=== PATIENT | male | born 1940 | race Caucasian/White ===

== ENCOUNTER 2024-10-19 19:10 | Emergency (ER) | payer MEDICARE ==
[2024-10-19] MEDS: Acetaminophen/oxyCODONE 325-5 MG Tab PO STA (20:01)
[2024-10-19] MEDS: Ketorolac 30 MG/ML SDV IM ONE (20:04)
== END 2024-10-19 20:40 | disposition home or self-care (01) ==
LOC: FB.ED 19:10
DX: S63.502A Unspecified sprain of left wrist, initial encounter (principal); Z79.82 Long term (current) use of aspirin; Z79.899 Other long term (current) drug therapy; Z88.8 Allergy status to other drugs, medicaments and biological substances; X58.XXXA Exposure to other specified factors, initial encounter
CPT/HCPCS: 73110-LT; 96372; 99283; A9270-GY; J1885